=== PATIENT | female | born 1965 | race Two or more races ===

== ENCOUNTER 2022-03-30 16:14 | Emergency (ER) | payer BC ==
[~2022-03-30] VITALS: Ht 157.5 cm; Wt 99.8 kg
[~2022-03-30 16:14] MED LIST: ALB5IS
[2022-03-30] MEDS ORDERED: ALUM & MAG HYDROX-SIMETH LIQ(MAALOX) 30 ML PO ONE (17:15)
[2022-03-30] MEDS ORDERED: IOHEXOL 350 MG/ML 100ML IJ ONE (17:22)
[2022-03-30 18:16] LABS: Basophils # (auto) 0.1 10 ^3/uL (0-0.2); Basophils % (auto) 1.1 % (0.0-2.0); Eosinophils # (auto) 0.2 10 ^3/uL (0-0.8); Eosinophils % (auto) 3.3 % (0.0-7.0); Hematocrit 42.5 % (36.0-46.0); Hemoglobin 14.2 g/dL (12.2-16.2); Lymphocytes # (auto) 1.8 10 ^3/uL (0.4-5.4); Lymphocytes % (auto) 28.3 % (10.0-50.0); Mean Corpuscular Hemoglobin 29.4 pg (28.0-32.0); Mean Corpuscular Hgb Conc. 33.4 g/dL (32.0-36.0); Mean Corpuscular Volume 87.9 fL (80.0-100.0); Monocytes # (auto) 0.6 10 ^3/uL (0-1.3); Monocytes % (auto) 8.7 % (0.0-12.0); Neutrophils # (auto) 3.7 10 ^3/uL (1.6-8.6); Neutrophils % (auto) 58.6 % (37.0-80.0); Nucleated Red Blood Cells % 0.1 %; Red Blood Cells 4.84 10^6/uL (4.0-5.20); Red Cell Distribution Width 13.2 % (11.8-14.3); White Blood Cell 6.4 10^3/uL (4.4-10.8)
[2022-03-30 18:33] LABS: Albumin 3.6 g/dL (3.4-5.0); BUN/Creatinine Ratio 22.4; Calcium 8.4 mg/dL (8.5-10.1); Magnesium 2.4 mg/dL (1.6-2.6); Potassium 3.8 mmol/L (3.5-5.1)
[2022-03-30 18:35] LABS: INR 0.96 (0.9-1.15); Partial Thromboplastin Time 28.6 sec (23.6-33.0)
[2022-03-30 18:48] LABS: Bilirubin, Total 0.3 mg/dL (0.2-1.0); Total Protein 7.4 g/dL (6.4-8.2)
[2022-03-30 22:50] VITALS: BP 152/81
[2022-04-04 12:42] LABS: Hepatitis A Ab IgM Negative
[2022-04-04 12:43] LABS: Hepatitis B Core IgM Negative; Hepatitis C Antibody Negative (Negative)
== END 2022-03-30 22:58 | disposition home or self-care (01) ==
LOC: ER 16:14
DX: K76.0 Fatty (change of) liver, not elsewhere classified (principal)
CPT/HCPCS: 36415; 71250; 71275; 76705; 80053; 80074; 83735; 84443; 84484; 85025; 85610; 85730; 93005; 99285; Q9967